=== PATIENT | female | born 1985 | race African-American/Black ===

== ENCOUNTER 2020-12-28 22:23 | Emergency (ER) | payer MEDICAID ==
[~2020-12-28] VITALS: Ht 160 cm; Wt 75.0 kg
[2020-12-28 22:27] VITALS: BP 150/110
[2020-12-28] MEDS ORDERED: HYDROCODONE/ACETAMINOPHEN 5/325MG TABLET PO ONE (23:00)
[2020-12-28] MEDS ORDERED: CLIN-116 MT (23:06)
[2020-12-28] MEDS ORDERED: T3 PO (23:06)
[2020-12-28] MEDS ORDERED: KETOROLAC 60MG/2ML VIAL IM ONE (23:15)
[2020-12-28] MEDS ORDERED: CLINDAMYCIN HCL 150MG CAPSULE PO SCH (23:30)
== END 2020-12-28 23:32 | disposition home or self-care (01) ==
LOC: ER 22:23
DX: K04.01 Reversible pulpitis (principal)
CPT/HCPCS: 96372; 99283; J1885

== ENCOUNTER 2023-04-06 19:25 | Emergency (ER) | payer MEDICAID ==
[~2023-04-06] VITALS: Ht 157.5 cm; Wt 83.0 kg
[~2023-04-06 19:25] MED LIST: CLIN-116 MT
[2023-04-06 19:32] VITALS: O2SAT 100
[2023-04-06 22:25] LABS: CLARITY URINE CLEAR (CLEAR); COLOR URINE YELLOW (YELLOW); GLUCOSE URINE NEGATIVE (NEGATIVE); KETONES URINE NEGATIVE (NEGATIVE); LEUKOCYTE ESTERASE URINE NEGATIVE (NEGATIVE); NITRITE URINE NEGATIVE (NEGATIVE); OCCULT BLOOD URINE NEGATIVE (NEGATIVE); PROTEIN URINE NEGATIVE (NEGATIVE); SPECIFIC GRAVITY URINE 1.021 (1.005-1.030); UROBILINOGEN URINE 0.2 E.U./dL (0.2-1.0)
[2023-04-06 23:42] LABS: EOSINOPHILS % 0.4 % (0.0-5.0); HEMATOCRIT. 40.7 % (36.0-48.0); HEMOGLOBIN. 13.4 g/dL (12.0-16.0); MEAN CORPUSCULAR HEMOGLOBIN 28.4 pg (28.0-32.0); MEAN CORPUSCULAR VOLUME 86.1 fL (81.0-99.0); MONOCYTES % 6.7 % (2.0-8.0); NEUTROPHILS % 64.9 % (40.0-76.0); PLATELET 323 x1000/uL (130-400); RED BLOOD CELL COUNT 4.72 mill/uL (4.2-5.4); RED CELL DISTRIBUTION WIDTH 16.9 % (11.6-14.6); WHITE BLOOD COUNT 9.1 x1000/uL (4.5-11.0)
[2023-04-06 23:58] LABS: ALANINE AMINOTRANSFERASE 22 IU/L (10-49); ALBUMIN 4.4 g/dL (3.2-4.8); ASPARTATE AMINOTRANSFERASE 23 IU/L (<34); BILIRUBIN TOTAL 0.4 mg/dL (0.1-1.0); CALCIUM 9.4 mg/dL (8.7-10.4); CARBON DIOXIDE 25 mEq/L (21-32); CHLORIDE 106 mEq/L (98-107); CREATININE 0.8 mg/dL (0.6-1.0); GLUCOSE 105 mg/dL (70-105); POTASSIUM 3.6 mEq/L (3.5-5.1); PROTEIN TOTAL 8.2 g/dL (6.0-8.3); SODIUM 137 mEq/L (136-145); UREA NITROGEN BLOOD 10 mg/dL (9-23)
[2023-04-07] MEDS ORDERED: ACET-2708 PO (00:28)
[2023-04-07] MEDS ORDERED: MECL-299 PO (00:28)
[2023-04-07 00:38] VITALS: BP 146/106; PULSE 99; RESP 16; TEMP 98.6
== END 2023-04-07 00:46 | disposition home or self-care (01) ==
LOC: ER 19:25
DX: R42 Dizziness and giddiness (principal); I10 Essential (primary) hypertension
CPT/HCPCS: 36415; 71045; 80053; 81003; 81025; 85025; 99284

== ENCOUNTER 2024-04-25 09:38 | Emergency (ER) | payer MEDICAID ==
[~2024-04-25] VITALS: Ht 160 cm; Wt 88.4 kg
[~2024-04-25 09:38] MED LIST changes: +ACET-2708 PO; +MECL-299 PO
[2024-04-25 09:46] VITALS: BP 162/112; PULSE 88; RESP 20; TEMP 36.9; O2SAT 100; O2SAT 99
[2024-04-25] MEDS ORDERED: NAPR-1495 MT (10:11)
[2024-04-25] MEDS ORDERED: P20 PO (10:11)
[2024-04-25] MEDS ORDERED: CYCL10TA21 MT (10:11)
[2024-04-25] MEDS: PREDNISONE 20MG TABLET PO STA (10:14)
== END 2024-04-25 10:21 | disposition home or self-care (01) ==
LOC: ER 09:38
DX: M54.9 Dorsalgia, unspecified (principal); I10 Essential (primary) hypertension
CPT/HCPCS: 99283; 81025; J7512